=== PATIENT | female | born 1935 | race Caucasian/White ===

== ENCOUNTER 2019-04-26 09:59 | Inpatient (IN) | payer OTHER, MEDICAID ==
[~2019-04-26] VITALS: Ht 160 cm; Wt 61.2 kg
[~2019-04-26 09:59] MED LIST: METF-379 PO
[2019-04-26 10:10] VITALS: BP_SYST 138
[2019-04-26 11:30] LABS: BILIRUBIN,URINE 1+ (NEGATIVE); BLOOD, URINE 2+ (NEGATIVE); CLARITY/URINE SL CLOUDY (CLEAR); COLOR,URINE YELLOW (YELLOW); GLUCOSE,URINE NEGATIVE (NEGATIVE); KETONES,URINE TRACE (NEGATIVE); LEUKOCYTE ESTERASE ,URINE TRACE (NEGATIVE); NITRITE, URINE NEGATIVE (NEGATIVE); PH,URINE 5.5 (5.0-8.0); PROTEIN URINE TRACE (NEGATIVE); UROBILINOGEN,URINE 0.2 (0.2-1.0)
[2019-04-26 11:37] LABS: BASOPHILS % (AUTO) 0.4 % (0.0-2.0); EOSINOPHILS % (AUTO) 0.4 % (0.0-4.0); HEMATOCRIT 31.9 % (36-48); HEMOGLOBIN 11.3 g/dL (12.0-16.0); LYMPHOCYTES # (AUTO) 1.1 K/uL (1.0-5.5); LYMPHOCYTES % (AUTO) 9.8 % (20.5-51.5); MEAN CORPUSCULAR HEMOGLOBIN 33 pg (27-31); MEAN CORPUSCULAR HGB CONC 35 % (32-36); MEAN CORPUSCULAR VOLUME 94 fL (79.0-98.0); MONOCYTES # (AUTO) 0.9 K/uL (0.0-1.0); MONOCYTES % (AUTO) 7.9 % (1.7-9.3); NEUTROPHILS # (AUTO) 8.9 K/uL (1.8-7.7); NEUTROPHILS % (AUTO) 81.5 % (40.0-70.0); PLATELET COUNT (AUTO) 208 K/uL (130-430); RED BLOOD CELL COUNT(AUTO) 3.39 MIL/uL (4.2-6.2); RED CELL DISTRIBUTION WIDTH 12.8 % (9.0-15.0)
[2019-04-26 11:42] LABS: BACTERIA,URINE MODERATE /HPF (None Seen)
[2019-04-26] MEDS ORDERED: cefTRIAXone 1 GM IVPB PREMIX 50 ML IV ONE (11:45)
[2019-04-26 11:57] LABS: ALANINE AMINOTRANSFERASE 15 U/L (12-78)
[2019-04-26 13:11] LABS: ALBUMIN 3.6 g/dL (3.4-4.8); ASPARTATE AMINOTRANSFERASE 28 U/L (10-37); CALCIUM 9.7 mg/dL (8.4-11.0); CHLORIDE 88 mmol/L (98-107); CREATININE 2.03 mg/dL (0.55-1.30); GLUCOSE 115 mg/dL (70-99); POTASSIUM 3.6 mmol/L (3.5-5.1); SODIUM SERUM 123 mmol/L (136-145); TOTAL BILIRUBIN 0.6 mg/dL (0.0-1.0)
[2019-04-26 13:26] LABS: ANION GAP 9 (5-15); UREA NITROGEN, BLOOD 31 mg/dL (8-21)
[2019-04-26] MEDS ORDERED: NACL 0.9% 1,000 ML IV ONE (13:30)
[2019-04-26 14:11] VITALS: BP_SYST 142
[2019-04-26] MEDS ORDERED: DOCU-144 PO (14:30)
[2019-04-26] MEDS ORDERED: METO50TA7 PO (14:30)
[2019-04-26] MEDS ORDERED: NITR1PAT76 TD (14:30)
[2019-04-26] MEDS ORDERED: INSU100V SQ (14:30)
[2019-04-26] MEDS ORDERED: CAT.1 PO (14:30)
[2019-04-26] MEDS ORDERED: SERT25TA PO (14:30)
[2019-04-26] MEDS ORDERED: ASPI-1153 PO (14:30)
[2019-04-26] MEDS ORDERED: HYDR25TA4 PO (14:30)
[2019-04-26] MEDS ORDERED: RISP1TAB7 PO (14:30)
[2019-04-26] MEDS ORDERED: LOPE2CAP PO (14:30)
[2019-04-26] MEDS ORDERED: MELO15TA13 PO (14:30)
[2019-04-26] MEDS ORDERED: OMEP20CA11 PO (14:30)
[2019-04-26] MEDS ORDERED: LIDOINT TP (14:30)
[2019-04-26] MEDS ORDERED: GABA-529 PO (14:30)
[2019-04-26] MEDS ORDERED: CALC-823 PO (14:30)
[2019-04-26] MEDS ORDERED: VALS320T2 PO (14:30)
[2019-04-26] MEDS ORDERED: SIMV20TA2 PO (14:30)
[2019-04-26] MEDS ORDERED: TYC3 PO (14:30)
[2019-04-26] MEDS ORDERED: PSEU30TA36 PO (14:30)
[2019-04-26] MEDS ORDERED: ONDANSETRON HCL 4 MG/2 ML VIAL IVP PRN (15:30)
[2019-04-26] MEDS ORDERED: DEXTROSE 50% JECT 50 ML DISP.SYRIN IVP PRN (15:30)
[2019-04-26] MEDS ORDERED: ACETAMINOPHEN 325 MG TABLET PO PRN (15:30)
[2019-04-26] MEDS ORDERED: ACETAMINOPHEN/CODEINE 300 MG-30 MG TABLET PO PRN (15:30)
[2019-04-26] MEDS ORDERED: LOPERAMIDE HCL 2 MG CAPSULE PO PRN (15:30)
[2019-04-26] MEDS ORDERED: HYDROcodone/ACETAMIN 5-325 MG TAB (NORCO/ VICODIN) PO PRN (15:30)
[2019-04-26] MEDS ORDERED: INSULIN LISPRO SLIDING SCALE 100 UNITS/ML VIAL (humaLOG) SUBCUT PRN (15:30)
[2019-04-26] MEDS: NACL 0.9% 1,000 ML IV SCH (15:49)
[2019-04-26 16:52] VITALS: BP_SYST 137
[2019-04-26 16:52] LABS: ANION GAP 8 (5-15); CALCIUM 9.2 mg/dL (8.4-11.0); CHLORIDE 89 mmol/L (98-107); CREATININE 1.94 mg/dL (0.55-1.30); FREE T4 (FREE THYROXINE) 1.4 ng/dl (0.8-1.5); GLUCOSE 149 mg/dL (70-99); LIPASE 47 U/L (73-393); PHOSPHORUS 3.3 mg/dL (2.7-4.5); POTASSIUM 3.5 mmol/L (3.5-5.1); SODIUM SERUM 124 mmol/L (136-145); THYROID STIMULATING HORMONE 1.16 uIu/mL (0.36-3.74); UREA NITROGEN, BLOOD 29 mg/dL (8-21)
[2019-04-26] MEDS ORDERED: LEVOFLOXACIN 500 MG/D5W 100 ML IV SCH (18:30)
[2019-04-26] MEDS ORDERED: LEVOFLOXACIN 500 MG/D5W 100 ML IV ONE (19:03)
[2019-04-26 19:58] VITALS: BP_SYST 148
[2019-04-26] MEDS: CALCIUM CARBONATE/VITAMIN D3 1 TAB TABLET PO SCH (20:05)
[2019-04-26] MEDS: GABAPENTIN 100 MG CAPSULE PO SCH (20:05)
[2019-04-26] MEDS: HEPARIN SODIUM,PORCINE 5000 UNITS/ML VIAL SUBCUT SCH (20:06)
[2019-04-27 00:36] VITALS: BP_SYST 146
[2019-04-27] MEDS: NACL 0.9% 1,000 ML IV SCH ×3 (02:33→23:10)
[2019-04-27 06:20] LABS: BASOPHILS % (AUTO) 0.3 % (0.0-2.0); EOSINOPHILS # (AUTO) 0.2 K/uL (0.0-0.4); EOSINOPHILS % (AUTO) 2.5 % (0.0-4.0); HEMATOCRIT 30.8 % (36-48); HEMOGLOBIN 10.9 g/dL (12.0-16.0); LYMPHOCYTES # (AUTO) 1.1 K/uL (1.0-5.5); LYMPHOCYTES % (AUTO) 16.1 % (20.5-51.5); MEAN CORPUSCULAR HEMOGLOBIN 33 pg (27-31); MEAN CORPUSCULAR HGB CONC 36 % (32-36); MEAN CORPUSCULAR VOLUME 94 fL (79.0-98.0); MONOCYTES # (AUTO) 0.6 K/uL (0.0-1.0); MONOCYTES % (AUTO) 9.4 % (1.7-9.3); NEUTROPHILS # (AUTO) 4.8 K/uL (1.8-7.7); NEUTROPHILS % (AUTO) 71.7 % (40.0-70.0); PLATELET COUNT (AUTO) 201 K/uL (130-430); RED BLOOD CELL COUNT(AUTO) 3.29 MIL/uL (4.2-6.2); RED CELL DISTRIBUTION WIDTH 12.7 % (9.0-15.0)
[2019-04-27 06:42] LABS: ALANINE AMINOTRANSFERASE 14 U/L (12-78); ALBUMIN 3.1 g/dL (3.4-4.8); ANION GAP 5 (5-15); ASPARTATE AMINOTRANSFERASE 27 U/L (10-37); CHLORIDE 94 mmol/L (98-107); CREATININE 1.19 mg/dL (0.55-1.30); GLUCOSE 112 mg/dL (70-99); POTASSIUM 4.2 mmol/L (3.5-5.1); SODIUM SERUM 127 mmol/L (136-145); THYROID STIMULATING HORMONE 0.76 uIu/mL (0.36-3.74); TOTAL BILIRUBIN 0.5 mg/dL (0.0-1.0); UREA NITROGEN, BLOOD 20 mg/dL (8-21)
[2019-04-27 07:01] LABS: WHITE BLOOD COUNT (AUTO) 6.6 K/uL (4.8-10.8)
[2019-04-27 07:25] LABS: CHOLESTEROL 119 mg/dL (<200); HDL CHOLESTEROL 44 mg/dL (>55); LDL CHOLESTEROL 59 mg/dL (<100); TRIGLYCERIDES 65 mg/dL (30-150)
[2019-04-27] MEDS: PANTOPRAZOLE SODIUM 40 MG TAB PO SCH (08:29)
[2019-04-27] MEDS: SIMVASTATIN 20 MG TABLET PO SCH (08:29)
[2019-04-27] MEDS: ASPIRIN 81 MG TABLET(ECOTRIN) PO SCH (08:29)
[2019-04-27] MEDS: CALCIUM CARBONATE/VITAMIN D3 1 TAB TABLET PO SCH ×2 (08:29→20:53)
[2019-04-27] MEDS: LOSARTAN POTASSIUM 50 MG TABLET (COZAAR) PO SCH (08:30)
[2019-04-27] MEDS: GABAPENTIN 100 MG CAPSULE PO SCH ×3 (08:30→20:53)
[2019-04-27] MEDS: SERTRALINE HCL 50 MG TABLET PO SCH (08:30)
[2019-04-27] MEDS: DOCUSATE SODIUM 100 MG CAPSULE PO SCH (08:31)
[2019-04-27] MEDS: HEPARIN SODIUM,PORCINE 5000 UNITS/ML VIAL SUBCUT SCH ×2 (08:32→20:57)
[2019-04-27 08:42] VITALS: BP_SYST 151
[2019-04-27] MEDS ORDERED: METOPROLOL SUCCINATE 50 MG TAB.SR.24H (TOPROL XL) PO SCH (09:00)
[2019-04-27] MEDS ORDERED: DOCUSATE SODIUM 100 MG CAPSULE PO SCH (09:00)
[2019-04-27] MEDS ORDERED: risperiDONE 1 MG TABLET (RisperDAL) PO SCH (09:00)
[2019-04-27] MEDS ORDERED: METOPROLOL SUCCINATE 50 MG TAB.SR.24H (TOPROL XL) PO ONE (09:30)
[2019-04-27] MEDS: LIDOCAINE TOPICAL OINT 5%, 35 GM TP SCH (09:36)
[2019-04-27] MEDS: metFORMIN HCL 500 MG TABLET PO SCH (10:50)
[2019-04-27 12:40] VITALS: BP_SYST 144
[2019-04-27 16:40] VITALS: BP_SYST 164
[2019-04-27] MEDS: LEVOFLOXACIN 250 MG/D5W 50 ML IV SCH (17:48)
[2019-04-27] MEDS ORDERED: risperiDONE 1 MG TABLET (RisperDAL) PO ONE (19:00)
[2019-04-27 20:00] VITALS: BP_SYST 150
[2019-04-28 01:31] VITALS: BP_SYST 144
[2019-04-28 07:06] LABS: BASOPHILS % (AUTO) 0.4 % (0.0-2.0); EOSINOPHILS # (AUTO) 0.1 K/uL (0.0-0.4); EOSINOPHILS % (AUTO) 1.9 % (0.0-4.0); HEMATOCRIT 32.8 % (36-48); HEMOGLOBIN 11.5 g/dL (12.0-16.0); LYMPHOCYTES % (AUTO) 17.8 % (20.5-51.5); MEAN CORPUSCULAR HEMOGLOBIN 33 pg (27-31); MEAN CORPUSCULAR HGB CONC 35 % (32-36); MEAN CORPUSCULAR VOLUME 95 fL (79.0-98.0); MONOCYTES # (AUTO) 0.5 K/uL (0.0-1.0); MONOCYTES % (AUTO) 8.9 % (1.7-9.3); PLATELET COUNT (AUTO) 229 K/uL (130-430); RED BLOOD CELL COUNT(AUTO) 3.46 MIL/uL (4.2-6.2); RED CELL DISTRIBUTION WIDTH 12.6 % (9.0-15.0); WHITE BLOOD COUNT (AUTO) 5.6 K/uL (4.8-10.8)
[2019-04-28 08:15] VITALS: BP_SYST 157
[2019-04-28 08:15] LABS: ALANINE AMINOTRANSFERASE 15 U/L (12-78); ANION GAP 4 (5-15); ASPARTATE AMINOTRANSFERASE 20 U/L (10-37); CHLORIDE 96 mmol/L (98-107); CREATININE 0.81 mg/dL (0.55-1.30); GLUCOSE 116 mg/dL (70-99); PHOSPHORUS 2.9 mg/dL (2.7-4.5); POTASSIUM 3.9 mmol/L (3.5-5.1); SODIUM SERUM 129 mmol/L (136-145); TOTAL BILIRUBIN 0.4 mg/dL (0.0-1.0); UREA NITROGEN, BLOOD 10 mg/dL (8-21)
[2019-04-28 08:37] LABS: CALCIUM 8.7 mg/dL (8.4-11.0)
[2019-04-28] MEDS: NACL 0.9% 1,000 ML IV SCH ×3 (08:53→22:14)
[2019-04-28] MEDS: SIMVASTATIN 20 MG TABLET PO SCH (08:54)
[2019-04-28] MEDS: CALCIUM CARBONATE/VITAMIN D3 1 TAB TABLET PO SCH ×2 (08:54→21:35)
[2019-04-28] MEDS: SERTRALINE HCL 50 MG TABLET PO SCH (08:54)
[2019-04-28] MEDS: PANTOPRAZOLE SODIUM 40 MG TAB PO SCH (08:54)
[2019-04-28] MEDS: GABAPENTIN 100 MG CAPSULE PO SCH ×3 (08:54→21:40)
[2019-04-28] MEDS: ASPIRIN 81 MG TABLET(ECOTRIN) PO SCH (08:54)
[2019-04-28] MEDS: DOCUSATE SODIUM 100 MG CAPSULE PO SCH (08:54)
[2019-04-28] MEDS: METOPROLOL TARTRATE 50 MG TABLET PO SCH ×2 (08:55→21:36)
[2019-04-28] MEDS: LOSARTAN POTASSIUM 50 MG TABLET (COZAAR) PO SCH (08:55)
[2019-04-28] MEDS: HEPARIN SODIUM,PORCINE 5000 UNITS/ML VIAL SUBCUT SCH ×2 (08:56→21:53)
[2019-04-28] MEDS: LIDOCAINE TOPICAL OINT 5%, 35 GM TP SCH (08:57)
[2019-04-28] MEDS ORDERED: METOPROLOL SUCCINATE 50 MG TAB.SR.24H (TOPROL XL) PO SCH (09:00)
[2019-04-28] MEDS: metFORMIN HCL 500 MG TABLET PO SCH (09:17)
[2019-04-28] MEDS ORDERED: MAGNESIUM SULFATE 50 ML IV ONE (10:00)
[2019-04-28 12:45] VITALS: BP_SYST 140
[2019-04-28 16:45] VITALS: BP_SYST 153
[2019-04-28] MEDS: LEVOFLOXACIN 250 MG/D5W 50 ML IV SCH (18:10)
[2019-04-28] MEDS ORDERED: risperiDONE 1 MG TABLET (RisperDAL) PO SCH (19:00)
[2019-04-28 20:00] VITALS: BP_SYST 149
[2019-04-29 01:10] VITALS: BP_SYST 149
[2019-04-29 07:07] LABS: BASOPHILS % (AUTO) 0.4 % (0.0-2.0); EOSINOPHILS # (AUTO) 0.2 K/uL (0.0-0.4); EOSINOPHILS % (AUTO) 2.9 % (0.0-4.0); HEMATOCRIT 30.2 % (36-48); HEMOGLOBIN 10.7 g/dL (12.0-16.0); LYMPHOCYTES # (AUTO) 1.2 K/uL (1.0-5.5); LYMPHOCYTES % (AUTO) 19.6 % (20.5-51.5); MEAN CORPUSCULAR HEMOGLOBIN 33 pg (27-31); MEAN CORPUSCULAR HGB CONC 35 % (32-36); MEAN CORPUSCULAR VOLUME 95 fL (79.0-98.0); MONOCYTES # (AUTO) 0.5 K/uL (0.0-1.0); MONOCYTES % (AUTO) 8.2 % (1.7-9.3); NEUTROPHILS # (AUTO) 4.3 K/uL (1.8-7.7); NEUTROPHILS % (AUTO) 68.9 % (40.0-70.0); PLATELET COUNT (AUTO) 242 K/uL (130-430); RED BLOOD CELL COUNT(AUTO) 3.19 MIL/uL (4.2-6.2); RED CELL DISTRIBUTION WIDTH 12.7 % (9.0-15.0); WHITE BLOOD COUNT (AUTO) 6.3 K/uL (4.8-10.8)
[2019-04-29 07:36] LABS: ALANINE AMINOTRANSFERASE 16 U/L (12-78); ALBUMIN 2.9 g/dL (3.4-4.8); ANION GAP 7 (5-15); ASPARTATE AMINOTRANSFERASE 23 U/L (10-37); CALCIUM 8.4 mg/dL (8.4-11.0); CHLORIDE 99 mmol/L (98-107); CREATININE 0.68 mg/dL (0.55-1.30); GLUCOSE 105 mg/dL (70-99); POTASSIUM 3.7 mmol/L (3.5-5.1); SODIUM SERUM 131 mmol/L (136-145); TOTAL BILIRUBIN 0.3 mg/dL (0.0-1.0); UREA NITROGEN, BLOOD 8 mg/dL (8-21)
[2019-04-29] MEDS: PANTOPRAZOLE SODIUM 40 MG TAB PO SCH (08:35)
[2019-04-29] MEDS: SERTRALINE HCL 50 MG TABLET PO SCH (08:35)
[2019-04-29] MEDS: SIMVASTATIN 20 MG TABLET PO SCH (08:35)
[2019-04-29] MEDS: LOSARTAN POTASSIUM 50 MG TABLET (COZAAR) PO SCH (08:38)
[2019-04-29] MEDS: CALCIUM CARBONATE/VITAMIN D3 1 TAB TABLET PO SCH (08:38)
[2019-04-29] MEDS: METOPROLOL TARTRATE 50 MG TABLET PO SCH (08:38)
[2019-04-29] MEDS: ASPIRIN 81 MG TABLET(ECOTRIN) PO SCH (08:38)
[2019-04-29] MEDS: GABAPENTIN 100 MG CAPSULE PO SCH (08:38)
[2019-04-29] MEDS: HEPARIN SODIUM,PORCINE 5000 UNITS/ML VIAL SUBCUT SCH (08:42)
[2019-04-29] MEDS ORDERED: METO-442 PO (08:43)
[2019-04-29] MEDS: DOCUSATE SODIUM 100 MG CAPSULE PO SCH (08:51)
[2019-04-29] MEDS: metFORMIN HCL 500 MG TABLET PO SCH (09:00)
[2019-04-29] MEDS: LIDOCAINE TOPICAL OINT 5%, 35 GM TP SCH (09:00)
[2019-04-29 11:17] VITALS: BP_SYST 159
[2019-04-29] MEDS: NACL 0.9% 1,000 ML IV SCH (11:27)
[2019-04-29 14:46] VITALS: BP_SYST 150
[2019-04-29] MEDS ORDERED: RISP1TAB7 PO (19:19)
== END 2019-04-29 15:35 | DRG 682 ==
LOC: SED 09:59 → STU 13:34
PROVIDERS: ADMIT Family Medicine; ATTEND Family Medicine
DX: N17.0 Acute kidney failure with tubular necrosis (principal); G93.41 Metabolic encephalopathy; E87.1 Hypo-osmolality and hyponatremia; N39.0 Urinary tract infection, site not specified; E44.0 Moderate protein-calorie malnutrition; E11.22 Type 2 diabetes mellitus with diabetic chronic kidney disease; E86.0 Dehydration; F02.80 Dementia in other diseases classified elsewhere, unspecified severity, without behavioral disturbance, psychotic disturbance, mood disturbance, and anxiety; G20 Parkinson's disease; I12.9 Hypertensive chronic kidney disease with stage 1 through stage 4 chronic kidney disease, or unspecified chronic kidney disease; N18.9 Chronic kidney disease, unspecified; R29.6 Repeated falls; T50.2X5A Adverse effect of carbonic-anhydrase inhibitors, benzothiadiazides and other diuretics, initial encounter; E78.00 Pure hypercholesterolemia, unspecified; F32.9 Major depressive disorder, single episode, unspecified; D64.9 Anemia, unspecified; Z68.23 Body mass index [BMI] 23.0-23.9, adult; Y92.89 Other specified places as the place of occurrence of the external cause; Z90.49 Acquired absence of other specified parts of digestive tract
CPT/HCPCS: 36415; 70450-TC; 71045; 80048; 80053; 80061; 81000-TC; 82533; 82962; 83036; 83605; 83690-TC; 83735-TC; 83880; 84100-TC; 84439; 84443-TC; 84484; 85025; 85610-TC; 85730-TC; 87040-TC; 87086; 93005; 93306; 93880; 97116-GP; 97530-GP; 99285; G0378; J0696; J1644; J1956; J3475; J7030

== ENCOUNTER 2020-06-27 09:48 | Emergency (ER) | payer OTHER, MEDICAID ==
[~2020-06-27] VITALS: Ht 167.6 cm; Wt 59.0 kg
[~2020-06-27 09:48] MED LIST changes: +ASPI-1393 PO; +CALC-823 PO; +CAT.1 PO; +DOCU-144 PO; +GABA-529 PO; +INSU100V SQ; +LIDOINT TP; +LOPE2CAP PO; +METO-442 PO; +NITR1PAT76 TD; +OMEP20CA15 PO; +PSEU30TA36 PO; +RISP1TAB7 PO; +SERT25TA PO; +SIMV20TA2 PO; +TYC3 PO; +VALS320T2 PO
--- NOTE | 2020-06-27 09:48 | NUR ---
PLACED IN BED 6 FOR TRIAGE
--- NOTE | 2020-06-27 10:00 | NUR ---
Patient presented to ER C/O RIGHT SHOULDER pain. Patient BIB BLS A&Ox4 afebrile, nausea& vomiting denies Diarrhea, pain 10/10. Patient sent by [facility] for right shoulder pain.
[2020-06-27 10:02] VITALS: BP_SYST 180
--- NOTE | 2020-06-27 10:09 | NUR ---
ROSSY MIMS at bedside examining patient.
--- NOTE | 2020-06-27 10:20 | NUR ---
Denzel myles in ED - 06/27/20 at 1233 by SDEDTD Daughter of CON Jimenez([employer] called for update.
[2020-06-27 10:21] LABS: BASOPHILS % (AUTO) 0.3 % (0.0-2.0); EOSINOPHILS # (AUTO) 0.1 K/uL (0.0-0.4); EOSINOPHILS % (AUTO) 0.7 % (0.0-4.0); HEMATOCRIT 32.6 % (36-48); HEMOGLOBIN 10.7 g/dL (12.0-16.0); LYMPHOCYTES # (AUTO) 0.9 K/uL (1.0-5.5); LYMPHOCYTES % (AUTO) 8.6 % (20.5-51.5); MEAN CORPUSCULAR HEMOGLOBIN 30 pg (27-31); MEAN CORPUSCULAR HGB CONC 33 % (32-36); MEAN CORPUSCULAR VOLUME 92 fL (79.0-98.0); MONOCYTES # (AUTO) 0.8 K/uL (0.0-1.0); MONOCYTES % (AUTO) 7.7 % (1.7-9.3); NEUTROPHILS # (AUTO) 9.1 K/uL (1.8-7.7); NEUTROPHILS % (AUTO) 82.7 % (40.0-70.0); PLATELET COUNT (AUTO) 288 K/uL (130-430); RED BLOOD CELL COUNT(AUTO) 3.53 MIL/uL (4.2-6.2); RED CELL DISTRIBUTION WIDTH 13.6 % (9.0-15.0)
--- NOTE | 2020-06-27 10:30 | NUR ---
Daughter of PT IRLANDA VARGAS called for update.
--- NOTE | 2020-06-27 10:34 | NUR ---
tree and shrub technician at BS for pirtable x-rays
[2020-06-27 10:50] LABS: PROTHROMBIN TIME 9.9 SECS (9.5-12.5)
[2020-06-27 10:52] LABS: ALANINE AMINOTRANSFERASE 18 U/L (12-78); ALBUMIN 3.4 g/dL (3.4-4.8); ASPARTATE AMINOTRANSFERASE 14 U/L (10-37); BILIRUBIN,DIRECT 0.1 mg/dL (0.0-0.3); CALCIUM 9.1 mg/dL (8.4-11.0); CREATININE 0.93 mg/dL (0.55-1.30); GLUCOSE 184 mg/dL (70-99); LIPASE 54 U/L (73-393); TOTAL BILIRUBIN 0.3 mg/dL (0.0-1.0); UREA NITROGEN, BLOOD 16 mg/dL (8-21)
[2020-06-27 11:23] LABS: SODIUM SERUM 131 mmol/L (136-145)
[2020-06-27 11:24] LABS: ANION GAP 8 (5-15); CHLORIDE 95 mmol/L (98-107)
--- NOTE | 2020-06-27 13:35 | NUR ---
IRLANDA VARGAS, DAUGHTER OF PT CALLED. NOTIFIED PT DISCHARGED, PT NEEDS TO BE PICKED UP
[2020-06-27] MEDS ORDERED: HYDROcodone/ACETAMIN 5-325 MG TAB (NORCO/ VICODIN) PO ONE (14:15)
[2020-06-27] MEDS ORDERED: HYDROcodone/ACETAMIN 5-325 MG TAB (NORCO/ VICODIN) ONE (14:18)
[2020-06-27 14:29] VITALS: BP_SYST 173
--- NOTE | 2020-06-27 14:30 | NUR ---
Patient given written and verbal discharge instructions and verbalizes understanding. ER MD discussed with patient the results and treatment provided. Patient in stable condition. ID arm band removed. NO Rx given. Patient educated on pain management and to follow up with PMD. Pain Scale 5/10 PATIENT MEDICATED . Opportunity for questions provided and answered. Medication side effect fact sheet provided.
== END 2020-06-27 14:29 | disposition home or self-care (01) ==
LOC: SED 09:48
DX: G89.29 Other chronic pain (principal); M25.512 Pain in left shoulder; I10 Essential (primary) hypertension; E11.9 Type 2 diabetes mellitus without complications; E78.00 Pure hypercholesterolemia, unspecified; Z79.899 Other long term (current) drug therapy; Z79.82 Long term (current) use of aspirin; Z79.4 Long term (current) use of insulin
CPT/HCPCS: 36415; 71045; 73030; 80048; 80076; 83690-TC; 84484; 85025; 85610-TC; 93005; 99285

== ENCOUNTER 2023-10-06 17:02 | Inpatient (IN) | payer OTHER, MEDICAID ==
[~2023-10-06] VITALS: Ht 157.5 cm; Wt 61.2 kg
[~2023-10-06 17:02] MED LIST changes: +SIMV-343 PO; -SIMV20TA2 PO
[2023-10-06 17:38] VITALS: BP_SYST 110; PULSE 83; RESP 18; TEMP 96.6; O2SAT 98
[2023-10-06 18:26] LABS: BASOPHILS % (AUTO) 0.4 % (0.0-2.0); EOSINOPHILS # (AUTO) 0.1 K/uL (0.0-0.4); EOSINOPHILS % (AUTO) 0.5 % (0.0-4.0); HEMATOCRIT 32.2 % (36-48); HEMOGLOBIN 11.1 g/dL (12.0-16.0); LYMPHOCYTES # (AUTO) 1.1 K/uL (1.0-5.5); LYMPHOCYTES % (AUTO) 10.3 % (20.5-51.5); MEAN CORPUSCULAR HEMOGLOBIN 31 pg (27-31); MEAN CORPUSCULAR HGB CONC 34 % (32-36); MEAN CORPUSCULAR VOLUME 91 fL (79.0-98.0); MONOCYTES # (AUTO) 1.4 K/uL (0.0-1.0); MONOCYTES % (AUTO) 12.4 % (1.7-9.3); NEUTROPHILS # (AUTO) 8.4 K/uL (1.8-7.7); NEUTROPHILS % (AUTO) 76.4 % (40.0-70.0); PLATELET COUNT (AUTO) 242 K/uL (130-430); RED BLOOD CELL COUNT(AUTO) 3.55 MIL/uL (4.2-6.2); RED CELL DISTRIBUTION WIDTH 12.6 % (9.0-15.0)
[2023-10-06 18:49] LABS: ALANINE AMINOTRANSFERASE 18 U/L (12-78); ALBUMIN 2.8 g/dL (3.4-4.8); ANION GAP 10 (5-15); ASPARTATE AMINOTRANSFERASE 33 U/L (10-37); CALCIUM 8.6 mg/dL (8.4-11.0); CARBON DIOXIDE 24 mmol/L (23-29); CHLORIDE 103 mmol/L (98-107); CREATININE 1.47 mg/dL (0.55-1.30); GLUCOSE 146 mg/dL (74-106); POTASSIUM 4.1 mmol/L (3.5-5.1); SODIUM SERUM 137 mmol/L (136-145); TOTAL BILIRUBIN 0.5 mg/dL (0.0-1.0); TOTAL PROTEIN, SERUM 7.1 g/dL (6.4-8.3); UREA NITROGEN, BLOOD 28 mg/dL (8-21)
[2023-10-06 18:55] LABS: BILIRUBIN,DIRECT 0.1 mg/dL (0.0-0.3); CREATINE KINASE, TOTAL 666 U/L (26-192); FREE T4 (FREE THYROXINE) 1.3 ng/dl (0.8-1.5)
[2023-10-06 19:19] LABS: CREATINE KINASE MB 6.9 ng/mL (0-3.6)
[2023-10-06 23:03] VITALS: BP_SYST 142; PULSE 81; RESP 16; TEMP 97.7; O2SAT 95
[2023-10-07] VITALS (8 sets, daily range): BP systolic 108–154; PULSE 65–87; RESP 15–19; TEMP 96.1–98.4; O2SAT 95–99
[2023-10-07] MEDS: D5/0.45 NS 1,000 ML IV ONE (00:15)
[2023-10-07] MEDS ORDERED: LIDOCAINE TOPICAL OINT 5%, 35 GM TP SCH (10:30)
[2023-10-07] MEDS ORDERED: ONDANSETRON HCL 4 MG/2 ML VIAL IVP PRN (10:30)
[2023-10-07] MEDS ORDERED: INSULIN REGULAR, HUMAN 100 UNITS/ML, 3 ML VIAL (humuLIN R) SUBCUT PRN (10:30)
[2023-10-07] MEDS ORDERED: HYDROcodone/ACETAMIN 10-325 MG TAB PO PRN (10:30)
[2023-10-07] MEDS ORDERED: PSEUDOEPHEDRINE HCL 30 MG TABLET PO PRN (10:30)
[2023-10-07] MEDS ORDERED: ACETAMINOPHEN 325 MG TABLET PO PRN (10:30)
[2023-10-07] MEDS ORDERED: HYDROcodone/ACETAMIN 5-325 MG TAB (NORCO/ VICODIN) PO PRN (10:30)
[2023-10-07] MEDS: NACL 0.9% 1,000 ML IV SCH (10:30)
[2023-10-07] MEDS ORDERED: LOPERAMIDE HCL 2 MG CAPSULE PO SCH (10:30)
[2023-10-07] MEDS ORDERED: NALOXONE HCL 0.4 MG/ML AMP (NARCAN) IVP PRN ×2 (10:30)
[2023-10-07 11:16] LABS: BASOPHILS % (AUTO) 0.3 % (0.0-2.0); EOSINOPHILS # (AUTO) 0.1 K/uL (0.0-0.4); EOSINOPHILS % (AUTO) 1.5 % (0.0-4.0); HEMATOCRIT 34.1 % (36-48); HEMOGLOBIN 11.5 g/dL (12.0-16.0); LYMPHOCYTES # (AUTO) 1.2 K/uL (1.0-5.5); MEAN CORPUSCULAR HEMOGLOBIN 31 pg (27-31); MEAN CORPUSCULAR HGB CONC 34 % (32-36); MEAN CORPUSCULAR VOLUME 92 fL (79.0-98.0); MONOCYTES # (AUTO) 1.1 K/uL (0.0-1.0); MONOCYTES % (AUTO) 13.6 % (1.7-9.3); NEUTROPHILS # (AUTO) 5.3 K/uL (1.8-7.7); NEUTROPHILS % (AUTO) 68.6 % (40.0-70.0); PLATELET COUNT (AUTO) 254 K/uL (130-430); RED CELL DISTRIBUTION WIDTH 12.7 % (9.0-15.0); WHITE BLOOD COUNT (AUTO) 7.8 K/uL (4.8-10.8)
[2023-10-07 11:48] LABS: ALANINE AMINOTRANSFERASE 18 U/L (12-78); ALBUMIN 2.4 g/dL (3.4-4.8); ANION GAP 8 (5-15); ASPARTATE AMINOTRANSFERASE 27 U/L (10-37); CALCIUM 8.3 mg/dL (8.4-11.0); CARBON DIOXIDE 24 mmol/L (23-29); CHLORIDE 104 mmol/L (98-107); CREATINE KINASE, TOTAL 363 U/L (26-192); CREATININE 1.08 mg/dL (0.55-1.30); GLUCOSE 155 mg/dL (74-106); POTASSIUM 3.7 mmol/L (3.5-5.1); SODIUM SERUM 136 mmol/L (136-145); TOTAL BILIRUBIN 0.4 mg/dL (0.0-1.0); TOTAL PROTEIN, SERUM 6.6 g/dL (6.4-8.3); UREA NITROGEN, BLOOD 24 mg/dL (8-21)
[2023-10-07] MEDS: PANTOPRAZOLE SODIUM 40 MG TAB PO ONE (12:00)
[2023-10-07] MEDS: LOSARTAN POTASSIUM 50 MG TABLET (COZAAR) PO ONE (12:00)
[2023-10-07] MEDS: SERTRALINE HCL 50 MG TABLET PO ONE (12:00)
[2023-10-07] MEDS: ASPIRIN 81 MG TABLET(ECOTRIN) PO ONE (12:00)
[2023-10-07] MEDS: metFORMIN HCL 500 MG TABLET PO ONE (12:00)
[2023-10-07] MEDS: DOCUSATE SODIUM 100 MG CAPSULE PO ONE (12:00)
[2023-10-07 12:09] LABS: CKMB RELATIVE INDEX 0.6 (0.0-2.9); CREATINE KINASE MB 2.3 ng/mL (0-3.6)
[2023-10-07] MEDS ORDERED: CICL90CR10 TP (14:30)
[2023-10-07] MEDS ORDERED: NITSL SL (14:30)
[2023-10-07] MEDS ORDERED: TELM80TA2 PO (14:30)
[2023-10-07] MEDS ORDERED: NEU100 PO (14:30)
[2023-10-07] MEDS ORDERED: LIDO700A30 TP (14:30)
[2023-10-07] MEDS ORDERED: METO-442 PO (14:30)
[2023-10-07] MEDS ORDERED: FERR-69 PO (14:37)
[2023-10-07] MEDS ORDERED: DAPA10TA PO (14:37)
[2023-10-07] MEDS ORDERED: SODI1TAB3 PO (14:37)
[2023-10-07] MEDS ORDERED: TRAM50TA2 PO (14:37)
[2023-10-07] MEDS ORDERED: ASCO500T20 PO (14:37)
[2023-10-07] MEDS ORDERED: TRIA15CR4 TP (14:37)
[2023-10-07] MEDS ORDERED: LOM2.5 PO (14:37)
[2023-10-07] MEDS ORDERED: DONE5TAB33 PO (14:37)
[2023-10-07] MEDS ORDERED: ONDA4TAB55 PO (14:37)
[2023-10-07] MEDS ORDERED: HYDR-3921 PO (14:37)
[2023-10-07] MEDS ORDERED: HYDR-500 PO (14:37)
[2023-10-07] MEDS ORDERED: MULT-1089 PO (14:37)
[2023-10-07] MEDS: GABAPENTIN 100 MG CAPSULE PO SCH ×2 (14:48→21:11)
[2023-10-07] MEDS ORDERED: METOPROLOL TARTRATE 50 MG TABLET PO SCH (21:00)
[2023-10-07] MEDS: risperiDONE 1 MG TABLET (RisperDAL) PO SCH (21:11)
[2023-10-07] MEDS: SIMVASTATIN 20 MG TABLET PO SCH (21:11)
[2023-10-07] MEDS: CALCIUM CARBONATE/VITAMIN D3 1 TAB TABLET PO SCH (21:11)
[2023-10-07] MEDS: LORazepam 2 MG/ML VIAL IVP PRN (23:06)
[2023-10-08 00:12] VITALS: BP_SYST 139; PULSE 76; RESP 19; TEMP 97.9; O2SAT 98
[2023-10-08 00:26] VITALS: BP_SYST 145; PULSE 96; RESP 17; TEMP 97.3; O2SAT 96
[2023-10-08 06:22] LABS: BASOPHILS % (AUTO) 0.4 % (0.0-2.0); EOSINOPHILS # (AUTO) 0.3 K/uL (0.0-0.4); EOSINOPHILS % (AUTO) 3.5 % (0.0-4.0); HEMOGLOBIN 10.1 g/dL (12.0-16.0); LYMPHOCYTES # (AUTO) 1.9 K/uL (1.0-5.5); LYMPHOCYTES % (AUTO) 24.2 % (20.5-51.5); MEAN CORPUSCULAR HEMOGLOBIN 31 pg (27-31); MEAN CORPUSCULAR HGB CONC 34 % (32-36); MEAN CORPUSCULAR VOLUME 93 fL (79.0-98.0); MONOCYTES # (AUTO) 0.8 K/uL (0.0-1.0); MONOCYTES % (AUTO) 10.8 % (1.7-9.3); NEUTROPHILS # (AUTO) 4.7 K/uL (1.8-7.7); NEUTROPHILS % (AUTO) 61.1 % (40.0-70.0); PLATELET COUNT (AUTO) 265 K/uL (130-430); RED BLOOD CELL COUNT(AUTO) 3.24 MIL/uL (4.2-6.2); RED CELL DISTRIBUTION WIDTH 12.4 % (9.0-15.0); WHITE BLOOD COUNT (AUTO) 7.7 K/uL (4.8-10.8)
[2023-10-08 06:39] LABS: ANION GAP 8 (5-15); CARBON DIOXIDE 26 mmol/L (23-29); CHLORIDE 102 mmol/L (98-107); CREATINE KINASE, TOTAL 197 U/L (26-192); CREATININE 0.96 mg/dL (0.55-1.30); GLUCOSE 109 mg/dL (74-106); PHOSPHORUS 2.8 mg/dL (2.7-4.5); POTASSIUM 3.5 mmol/L (3.5-5.1); SODIUM SERUM 136 mmol/L (136-145); UREA NITROGEN, BLOOD 16 mg/dL (8-21)
[2023-10-08 07:08] LABS: CKMB RELATIVE INDEX 0.8 (0.0-2.9); CREATINE KINASE MB 1.5 ng/mL (0-3.6)
[2023-10-08 08:00] VITALS: BP_SYST 116; PULSE 111; RESP 16; TEMP 98.3; O2SAT 97
[2023-10-08] MEDS ORDERED: ASPIRIN 81 MG TABLET(ECOTRIN) PO SCH (09:00)
[2023-10-08] MEDS: SERTRALINE HCL 50 MG TABLET PO SCH (09:33)
[2023-10-08] MEDS: PANTOPRAZOLE SODIUM 40 MG TAB PO SCH (09:34)
[2023-10-08] MEDS: LOSARTAN POTASSIUM 50 MG TABLET (COZAAR) PO SCH (09:34)
[2023-10-08] MEDS: metFORMIN HCL 500 MG TABLET PO SCH (09:34)
[2023-10-08] MEDS: DOCUSATE SODIUM 100 MG CAPSULE PO SCH (09:34)
[2023-10-08] MEDS: METOPROLOL TARTRATE 50 MG TABLET PO SCH (09:35)
[2023-10-08 11:09] VITALS: BP_SYST 115; PULSE 99; RESP 16; TEMP 96.1; O2SAT 93
[2023-10-08 15:10] VITALS: BP_SYST 128; PULSE 81; RESP 16; TEMP 97.4; O2SAT 94
[2023-10-08 19:00] VITALS: BP_SYST 103; RESP 18; TEMP 97.2; O2SAT 100; O2SAT 96
[2023-10-09 00:36] VITALS: BP_SYST 155; PULSE 85; RESP 18; TEMP 97.9; O2SAT 96
[2023-10-09 04:29] VITALS: RESP 18
[2023-10-09 06:05] LABS: BASOPHILS % (AUTO) 0.4 % (0.0-2.0); EOSINOPHILS # (AUTO) 0.2 K/uL (0.0-0.4); EOSINOPHILS % (AUTO) 2.4 % (0.0-4.0); HEMATOCRIT 36.1 % (36-48); HEMOGLOBIN 12.4 g/dL (12.0-16.0); LYMPHOCYTES % (AUTO) 23.2 % (20.5-51.5); MEAN CORPUSCULAR HEMOGLOBIN 32 pg (27-31); MEAN CORPUSCULAR HGB CONC 34 % (32-36); MEAN CORPUSCULAR VOLUME 92 fL (79.0-98.0); MONOCYTES # (AUTO) 0.6 K/uL (0.0-1.0); MONOCYTES % (AUTO) 7.3 % (1.7-9.3); NEUTROPHILS # (AUTO) 5.6 K/uL (1.8-7.7); NEUTROPHILS % (AUTO) 66.7 % (40.0-70.0); PLATELET COUNT (AUTO) 358 K/uL (130-430); RED BLOOD CELL COUNT(AUTO) 3.94 MIL/uL (4.2-6.2); RED CELL DISTRIBUTION WIDTH 12.2 % (9.0-15.0); WHITE BLOOD COUNT (AUTO) 8.4 K/uL (4.8-10.8)
[2023-10-09 07:04] LABS: ALANINE AMINOTRANSFERASE 22 U/L (12-78); ALBUMIN 2.9 g/dL (3.4-4.8); ANION GAP 13 (5-15); ASPARTATE AMINOTRANSFERASE 24 U/L (10-37); CALCIUM 8.9 mg/dL (8.4-11.0); CARBON DIOXIDE 24 mmol/L (23-29); CHLORIDE 102 mmol/L (98-107); CREATINE KINASE, TOTAL 204 U/L (26-192); CREATININE 1.05 mg/dL (0.55-1.30); GLUCOSE 111 mg/dL (74-106); POTASSIUM 3.3 mmol/L (3.5-5.1); SODIUM SERUM 139 mmol/L (136-145); TOTAL BILIRUBIN 0.5 mg/dL (0.0-1.0); TOTAL PROTEIN, SERUM 7.5 g/dL (6.4-8.3); UREA NITROGEN, BLOOD 16 mg/dL (8-21)
[2023-10-09 08:00] VITALS: BP_SYST 149; PULSE 78; RESP 20; TEMP 97.5; O2SAT 95
[2023-10-09 08:52] LABS: CKMB RELATIVE INDEX 1.7 (0.0-2.9); CREATINE KINASE MB 3.4 ng/mL (0-3.6)
[2023-10-09 13:31] VITALS: BP_SYST 140; PULSE 79; RESP 18; TEMP 97.5; O2SAT 99
[2023-10-09 14:15] VITALS: BP_SYST 140; PULSE 79; RESP 18; TEMP 97.5; O2SAT 99
== END 2023-10-09 14:40 | disposition home health service (06) | DRG 557 ==
LOC: SED 17:02 → SMU 20:07
PROVIDERS: ADMIT Preventive Medicine Preventive Medicine/Occupational Environmental Medicine; ATTEND Preventive Medicine Preventive Medicine/Occupational Environmental Medicine
DX: M62.82 Rhabdomyolysis (principal); N17.0 Acute kidney failure with tubular necrosis; E44.0 Moderate protein-calorie malnutrition; F03.93 Unspecified dementia, unspecified severity, with mood disturbance; D64.9 Anemia, unspecified; D72.829 Elevated white blood cell count, unspecified; E11.65 Type 2 diabetes mellitus with hyperglycemia; E78.5 Hyperlipidemia, unspecified; E83.51 Hypocalcemia; E88.09 Other disorders of plasma-protein metabolism, not elsewhere classified; F32.A Depression, unspecified; H54.8 Legal blindness, as defined in USA; I10 Essential (primary) hypertension; Z79.82 Long term (current) use of aspirin; Z79.84 Long term (current) use of oral hypoglycemic drugs; Z79.899 Other long term (current) drug therapy; Z68.24 Body mass index [BMI] 24.0-24.9, adult
CPT/HCPCS: 36415; 70450-TC; 71045; 72125-TC; 80048; 80053; 80076; 82550; 82553; 82948; 83605; 83735; 84100; 84439; 84484; 85025; 85730; 87081; 93005; 97110-GP; 97112-GP; 97116-GP; 97530-GP; 99285; J2060